=== PATIENT | male | born 1940 | race Caucasian/White ===

== ENCOUNTER 2019-05-29 18:24 | Emergency (ER) | payer MEDICARE ==
[~2019-05-29] VITALS: Ht 175.3 cm; Wt 80.0 kg
[~2019-05-29 18:24] MED LIST: QUIN20TA29 PO; SIMV20TA5 PO
[2019-05-29 19:00] LABS: BASOPHILS # (AUTO) 0.1 X10'3 (0-0.2); BASOPHILS % (AUTO) 0.9 % (0-1); EOSINOPHILS # (AUTO) 0.3 X10'3 (0-0.9); MEAN PLATELET VOLUME 7.4 FL (7.4-10.4); MONOCYTES # (AUTO) 0.5 X10'3 (0-0.9); NEUTROPHILS # (AUTO) 3.5 X10'3 (1.8-7.7); PLATELET COUNT 168 X10'3 (140-440)
[2019-05-29 19:02] LABS: EOSINOPHILS % (AUTO) 5.1 % (0-6); HEMATOCRIT 44.1 % (42.0-52.0); HEMOGLOBIN 15.4 g/dl (14.0-17.9); LYMPHOCYTES # (AUTO) 2.4 X10'3 (1.1-4.8); LYMPHOCYTES % (AUTO) 35.2 % (21-51); MEAN CORPUSCULAR HEMOGLOBIN 33.9 PG (27.0-31.0); MONOCYTES % (AUTO) 7.5 % (2-12); NEUTROPHILS % (AUTO) 51.3 % (42-75); RED BLOOD COUNT 4.55 X10'6 (4.70-6.10); RED CELL DISTRIBUTION WIDTH 13.9 % (11.5-14.5); WHITE BLOOD COUNT 6.8 X10'3 (4.5-11.0)
[2019-05-29 19:09] LABS: ALANINE AMINOTRANSFERASE 30 U/L (12-78); ALBUMIN 4.1 G/DL (3.4-5.0); ALBUMIN/GLOBULIN RATIO 1.2 (1.1-1.5); ALKALINE PHOSPHATASE 92 IU/L (46-116); ANION GAP 7 (8-16); ASPARTATE AMINO TRANSFERASE 18 U/L (10-37); BILIRUBIN,TOTAL 0.6 MG/DL (0.1-1.0); BLOOD UREA NITROGEN 16 MG/DL (7-18); BUN/CREATININE RATIO 16.7 (5.4-32.0); CALCIUM 9.5 MG/DL (8.5-10.1); CHLORIDE 104 MMOL/L (99-107); CREATININE 0.96 MG/DL (0.60-1.10); GLUCOSE 102 MG/DL (70-104); POTASSIUM 4.4 MMOL/L (3.5-5.1); SODIUM 139 MMOL/L (135-145); TOTAL CARBON DIOXIDE 28.5 MMOL/L (24-32); TOTAL PROTEIN 7.4 G/DL (6.4-8.2); eGFR 76 ML/MIN
[2019-05-29] MEDS ORDERED: nitroGLYCERIN 0.4mg SUBLingual tab SL PRN (19:15)
[2019-05-29] MEDS ORDERED: aspirin 81mg tab.chew PO ONE (19:15)
[2019-05-29 20:30] VITALS: BP 140/66
== END 2019-05-29 20:32 | disposition home or self-care (01) ==
LOC: ER 18:25
DX: R07.89 Other chest pain (principal); E78.00 Pure hypercholesterolemia, unspecified; I10 Essential (primary) hypertension; J45.909 Unspecified asthma, uncomplicated; Z87.11 Personal history of peptic ulcer disease; Z79.899 Other long term (current) drug therapy
CPT/HCPCS: 36415; 71045; 80053; 84484; 85025; 85379; 93005; 99284

== ENCOUNTER 2021-09-30 12:04 | Outpatient (CLI) | payer MEDICARE | END 2021-09-30 23:59 | disposition home or self-care (01) | LOC: CARD DIAG 12:04 | PROVIDERS: ATTEND Family Medicine | DX: I08.3 Combined rheumatic disorders of mitral, aortic and tricuspid valves (principal) | CPT/HCPCS: 93306 ==

== ENCOUNTER 2023-01-28 10:07 | Emergency (ER) | payer MEDICARE ==
[~2023-01-28] VITALS: Ht 243.8 cm; Wt 80.0 kg
[2023-01-28 10:14] VITALS: TEMP 97.9
[2023-01-28] MEDS ORDERED: ondansetron/PF 4mg/2ml inj IV ONE (10:35)
[2023-01-28] MEDS ORDERED: ketorolac trometh. 30mg/ml inj. IV ONE (10:35)
[2023-01-28] MEDS ORDERED: morphine 4 MG/ML inj SYRINge IV ONE (10:35)
--- NOTE | 2023-01-28 11:30 | NUR ---
PT SEEMED TO HAVE A RXN TO THE MORPHINE THAT WAS GIVEN, PROVIDER WAS MADE AWARE AND THE MED ALLERGY WAS ADDED TO PT PROFILE.
[2023-01-28] MEDS ORDERED: diphenhydrAMINE 50 mg/ml inj IV ONE (11:35)
--- NOTE | 2023-01-28 12:18 | NUR ---
PT REPORTS HIS SKIN REACTION HIVES IS CALMING DOWN WITH BENADRYL. PT AT BEDSIDE.
[2023-01-28] MEDS ORDERED: HYDR-3965 PO (13:00)
[2023-01-28 13:26] VITALS: BP 142/77; PULSE 54; RESP 16; O2SAT 95
== END 2023-01-28 13:28 | disposition home or self-care (01) ==
LOC: ER 10:07
DX: M43.06 Spondylolysis, lumbar region (principal); I10 Essential (primary) hypertension; E78.00 Pure hypercholesterolemia, unspecified; J45.909 Unspecified asthma, uncomplicated; Z88.5 Allergy status to narcotic agent; Z79.899 Other long term (current) drug therapy
CPT/HCPCS: 71250; 72131; 96374; 96375; 99285; J1200; J1885; J2270; J2405